=== PATIENT | female | born 1945 | race Caucasian/White ===

== ENCOUNTER 2017-02-15 11:41 | Day surgery (SDC) | payer MEDICARE ==
[~2017-02-15] VITALS: Ht 162.6 cm; Wt 74.5 kg
[2017-02-15] VITALS (7 sets, daily range): BP systolic 124–203; BP diastolic 56–79; PULSE 54–73; RESP 16–21; TEMP 97–97.6; O2SAT 97–99; Ht 162.6 cm; Wt 74.5 kg
[~2017-02-15 11:41] MED LIST: ALBU8.5H INH; ASPI-557 PO; ATEN50TA PO; CALC1TAB PO; CEFAZOLIN 1 GRAM INJECTION IV ONE; FURO40TA5 PO; LIDOCAINE 1% (10mg/ml) 2ml SDV INJ ONE; LISI-621 PO; LR 1,000 ML IV SCH; METF10002 PO; MULT-1147 PO; MULT-933 PO; NAPR220T61 PO; OMEG1CAP79 PO; PRED20TA PO
--- OUTSIDE RECORDS SUMMARY | 2017-02-15 12:02 | XMS REPORT ---
Author Author [facility]. Organization [facility] Address [address] [facility] [address] [place] [address] Phone [phone] Summary purpose CCDA Sent to [facility] Chief Complaint and Reason for Visit No authorized Reason for Visit (Admitting Diagnosis) is available for this visit. Problem list No authorized problems tracked for continuity of care are available for this visit. Encounters No authorized problems tracked for encounter diagnoses are available for this visit. Medications No medications recorded for this patient visit Allergies, adverse reactions, alerts No allergy information is available for this patient. Immunizations No immunizations recorded for this patient visit Relevant diagnostic tests and/or laboratory data RESULTS CBC :40:00 Result Normal Range Units WBC H 11.06 4.8-10.8 x103/mm3 Neutrophil % H 70.6 50-70 % Lymph % L 16.8 20-50 % [place] % H 11.6 1.0-9.0 % Eosinophil % 0.7 0-4 % Basophil % 0.3 0-2 % Neutrophil # H 7.81 3.0-7.0 x103/mm3 Lymph # 1.86 1.0-4.0 x103/mm3 [place] # H 1.28 0.0-0.8 x103/mm3 Eosinophil # 0.08 0-0.5 x103/mm3 Basophil # 0.03 0-0.2 x103/mm3 RBC L 3.75 4.20-5.40 x103/mm3 HGB L 11.6 12.0-16.0 g/dl HCT L 34.9 37.0-47.0 % MCV 93.1 81-99 FL MCH 30.9 27.0-31.0 pg MCHC 33.2 32.0-36.0 g/dl RDW L 11.9 12-15 % Platelet H 472 150-400 x103/mm3 MPV 9.8 6.0-10.0 FL Chemistry Group :40:00 Result Normal Range Units Sodium 136 134-145 mmol/L Potassium 3.6 3.6-5.0 mmol/L Chloride L 89 98-107 mmol/L CO2 H 36 22-30 mmol/L Glucose H 137 75-110 mg/dl BUN 13 9-20 mg/dl Creatinine L .62 0.8-1.7 mg/dl eGFR 95 ml/min. Calcium 9.0 8.4-10.2 mg/dl Special Chemistry Group [id number] Result Normal Range Units Troponin I < 0.06 ng/ml NEGATIVE - 0.06-0.30 ng/ml INCONCLUSIVE - 0.31-0.64 ng/ml; Suggest Repeating in 2-4 hours POSITIVE - >0.64 ng/ml; Probable AMI History of procedures Procedure Code Code Type Description Date Performed Performing Physician 92242 CPT-4 METABOLIC PANEL TOTAL CA 12-19-2016 KINZA IBARRA 30806 CPT-4 COMPLETE CBC, AUTOMATED 12-19-2016 KINZA IBARRA 34573 CPT-4 ASSAY OF TROPONIN, QUANT 12-19-2016 KINZA IBARRA Functional status No functional or cognitive status observations are available for this visit. Vital signs No authorized vital signs are available for this visit. Social history No Social History or smoking status observations were recorded for this visit. ( Unknown if ever smoked.) Treatment Plan No treatment plan text is available for this visit. Hospital discharge instructions No discharge instruction text is available for this visit.
--- OUTSIDE RECORDS SUMMARY | 2017-02-15 12:02 | XMS REPORT ---
Author Author [facility]. Organization [facility] Address [address] [facility] [address] [place] [address] Phone [phone] Summary purpose CCDA Sent to [facility] Chief Complaint and Reason for Visit No [...] Relevant diagnostic tests and/or laboratory data RESULTS Chemistry Group [id number] Result Normal Range Units Sodium 139 134-145 mmol/L Potassium 4.4 3.6-5.0 mmol/L Chloride L 93 98-107 mmol/L CO2 H 34 22-30 mmol/L Glucose H 129 75-110 mg/dl BUN 16 9-20 mg/dl Creatinine L .63 0.8-1.7 mg/dl eGFR 93 ml/min. Calcium 9.2 8.4-10.2 mg/dl History of procedures Procedure Code Code Type Description Date Performed Performing Physician 37052 CPT-4 METABOLIC PANEL TOTAL CA 08-23-2016 ELVA ALLEN Functional status No functional or cognitive status [...]
--- OUTSIDE RECORDS SUMMARY | 2017-02-15 12:02 | XMS REPORT ---
Author Author [facility]. Organization [facility] Address [address] [facility] [address] [place] [address] Phone [phone] Summary purpose CCDA Sent to [facility] Chief Complaint and Reason for Visit No authorized Reason for Visit (Admitting Diagnosis) is available for this visit. Problem list No authorized problems tracked for continuity of care are available for this visit. Encounters No authorized problems tracked for encounter diagnoses are available for this visit. Medications No home medications recorded for this patient visit Allergies, adverse reactions, alerts No allergy information is available for this patient. Immunizations No immunizations recorded for this patient visit Relevant diagnostic tests and/or laboratory data RESULTS Chemistry Group [id number]:00 Result Normal Range Units Sodium 135 134-145 mmol/L Potassium 3.6 3.6-5.0 mmol/L Chloride L 87 98-107 mmol/L CO2 H 35 22-30 mmol/L Glucose H 154 75-110 mg/dl BUN 13 9-20 mg/dl Creatinine L .5 0.8-1.7 mg/dl Calcium 10.2 8.4-10.2 mg/dl History of procedures No procedures recorded for this patient visit. Functional status No functional or cognitive status [...]
--- OUTSIDE RECORDS SUMMARY | 2017-02-15 12:02 | XMS REPORT ---
Author Author [facility]. Organization [facility] Address [address] [facility] [address] [place] [address] Phone [phone] Summary purpose CCDA Sent to [facility] Chief Complaint and Reason for Visit Admit Diagnosis 1 HYPERTENSION NOS Problem list No authorized problems tracked for [...] tests and/or laboratory data RESULTS Chemistry Group [id number]:00 Result Normal Range Units Sodium 135 134-145 mmol/L Potassium 3.6 3.6-5.0 mmol/L Chloride L 87 98-107 mmol/L CO2 H 35 22-30 mmol/L Glucose H 154 75-110 mg/dl BUN 13 9-20 mg/dl Creatinine L .5 0.8-1.7 mg/dl Calcium 10.2 8.4-10.2 mg/dl History of procedures Procedure Code Code Type Description Date Performed Performing Physician 87167 CPT-4 METABOLIC PANEL TOTAL CA 12-16-2014 ELVA ALLEN Functional status No functional or [...]
--- OUTSIDE RECORDS SUMMARY | 2017-02-15 12:02 | XMS REPORT ---
Author Author [facility]. Organization [facility] Address [address] [facility] [address] [place] [address] Phone [phone] Summary purpose CCDA Sent to [facility] Chief Complaint and Reason for Visit [...] diagnostic tests and/or laboratory data RESULTS CBC [id number]:50:00 Result Normal Range Units WBC H 12.34 4.8-10.8 x103/mm3 Neutrophil % H 71.1 50-70 % Lymph % L 14.5 20-50 % [place] % H 12.2 1.0-9.0 % Eosinophil % 1.8 0-4 % Basophil % 0.4 0-2 % Neutrophil # H 8.77 3.0-7.0 x103/mm3 Lymph # 1.79 1.0-4.0 x103/mm3 [place] # H 1.51 0.0-0.8 x103/mm3 Eosinophil # 0.22 0-0.5 x103/mm3 Basophil # 0.05 0-0.2 x103/mm3 RBC L 3.77 4.20-5.40 x103/mm3 HGB L 11.4 12.0-16.0 g/dl HCT L 34.2 37.0-47.0 % MCV 90.7 81-99 FL MCH 30.2 27.0-31.0 pg MCHC 33.3 32.0-36.0 g/dl RDW 12.9 12-15 % Platelet H 427 150-400 x103/mm3 MPV H 10.2 6.0-10.0 FL Chemistry Group [id number]:00 Result Normal Range Units Sodium L 132 134-145 mmol/L Potassium H 5.2 3.6-5.0 mmol/L Chloride L 87 98-107 mmol/L CO2 28 22-30 mmol/L Glucose H 145 75-110 mg/dl BUN 19 9-20 mg/dl Creatinine L .76 0.8-1.7 mg/dl eGFR 75 ml/min. Calcium 9.9 8.4-10.2 mg/dl Hematology Group [id number] Result Normal Range Units Sed Rate (ESR) H 74 0-20 MM/hr. History of procedures No procedures recorded for [...]
--- OUTSIDE RECORDS SUMMARY | 2017-02-15 12:02 | XMS REPORT ---
Author Author [facility]. Organization [facility] Address [address] [facility] [address] [place] [address] Phone [phone] Summary purpose CCDA Sent to [facility] Chief Complaint and Reason for Visit [...] diagnostic tests and/or laboratory data RESULTS CBC [id number]:55:00 Result Normal Range Units WBC H 13.54 4.8-10.8 x103/mm3 Neutrophil % H 75.4 50-70 % Lymph % L 14.8 20-50 % [place] % 8.3 1.0-9.0 % Eosinophil % 1.0 0-4 % Basophil % 0.5 0-2 % Neutrophil # H 10.19 3.0-7.0 x103/mm3 Lymph # 2.01 1.0-4.0 x103/mm3 [place] # H 1.13 0.0-0.8 x103/mm3 Eosinophil # 0.14 0-0.5 x103/mm3 Basophil # 0.07 0-0.2 x103/mm3 RBC L 4.05 4.20-5.40 x103/mm3 HGB 12.3 12.0-16.0 g/dl HCT L 36.6 37.0-47.0 % MCV 90.4 81-99 FL MCH 30.4 27.0-31.0 pg MCHC 33.6 32.0-36.0 g/dl RDW 12.7 12-15 % Platelet H 429 150-400 x103/mm3 MPV 10.0 6.0-10.0 FL Chemistry Group [id number] Result Normal Range Units Sodium L 132 134-145 mmol/L Result Amended on 2017-01-15 at 12:43:42. Previous status was DE. Potassium H 5.1 3.6-5.0 mmol/L Result Amended on 2017-01-15 at 12:43:42. Previous status was DE. Chloride L 89 98-107 mmol/L Result Amended on 2017-01-15 at 12:43:42. Previous status was DE. CO2 27 22-30 mmol/L Result Amended on 2017-01-15 at 12:43:42. Previous status was DE. Glucose H 149 75-110 mg/dl Result Amended on 2017-01-15 at 12:43:42. Previous status was DE. BUN H 22 9-20 mg/dl Result Amended on 2017-01-15 at 12:43:42. Previous status was DE. Creatinine L .72 0.8-1.7 mg/dl Result Amended on 2017-01-15 at 12:43:42. Previous status was DE. eGFR 80 ml/min. Total Protein 7.1 6.3-8.2 g/dl Result Amended on 2017-01-15 at 12:43:42. Previous status was DE. Albumin 3.7 3.5-5.0 g/dl Result Amended on 2017-01-15 at 12:43:42. Previous status was DE. Calcium H 10.3 8.4-10.2 mg/dl Result Amended on 2017-01-15 at 12:43:42. Previous status was DE. Alk Phos 105 38-126 U/L Result Amended on 2017-01-15 at 12:43:42. Previous status was DE. AST 16 14-36 U/L Result Amended on 2017-01-15 at 12:43:42. Previous status was DE. ALT 17 11-66 U/L Result Amended on 2017-01-15 at 12:43:42. Previous status was DE. T Bili .9 0.2-1.3 mg/dl Result Amended on 2017-01-15 at 12:43:42. Previous status was DE. A/G Ratio 1.1 Ratio Result Amended on 2017-01-15 at 12:43:42. Previous status was DE. History of procedures Procedure Code Code Type Description Date Performed Performing Physician 59245 CPT-4 COMPLETE CBC, AUTOMATED 01-14-2017 ROMIE ALLEN 19071 CPT-4 COMPREHEN METABOLIC PANEL 01-14-2017 ROMIE SOW Functional status No functional or cognitive status [...]
--- OUTSIDE RECORDS SUMMARY | 2017-02-15 12:03 | XMS REPORT | Continuity of Care Document ---
Author Author [facility] Organization [facility] Address Unknown Phone Unavailable Allergies Active Description Code Type Severity Reaction Onset Reported/Identified Relationship to Patient Clinical Status Yes codeine codeine Drug Allergy Unknown UNKNOWN 02/07/2012 Yes codeine codeine Drug Allergy Unknown vomiting 08/13/2016 Medications Problems Date Dx Coded Attending Type Code Diagnosis Diagnosed By 08/18/2010 D 401.1 BENIGN HYPERTENSION 08/24/2011 D 250.00 DM2/NOS UNCOMP NSU 08/24/2011 D 401.1 BENIGN HYPERTENSION 02/06/2013 ELVA DAVIS MD 401.1 BENIGN HYPERTENSION 05/22/2013 ELVA DAVIS MD 401.1 BENIGN HYPERTENSION 12/08/2013 ELVA DAVIS MD 250.00 DM2/NOS UNCOMP NSU 12/08/2013 ELVA DAVIS MD 272.0 PURE HYPERCHOLESTEROLEM 12/29/2013 ELVA DAVIS MD 276.1 HYPOSMOLALITY 08/23/2016 MIRIAM ALLEN MD, ELVA Díaz E11.9 Type 2 diabetes mellitus without complications 08/23/2016 MIRIAM ALLEN MD, ELVA Díaz I10 Essential (primary) hypertension 12/19/2016 KINZA MIKE R07.9 Chest pain, unspecified Procedures Code Description [place] [address] METABOLIC PANEL TOTAL CA MIRIAM ALLEN MD, ELVA [place] 08/18/2010 48085 METABOLIC PANEL TOTAL CA MIRIAM ALLEN MD, ELVA [place] 08/24/2011 77870 METABOLIC PANEL TOTAL CA MIRIAM ALLEN MD, ELVA [place] 02/06/2013 81106 COMPLETE CBC, AUTOMATED MIRIAM ALLEN MD, ELVA [place] 02/06/2013 82886 METABOLIC PANEL TOTAL CA MIRIAM ALLEN MD, ELVA [place] 05/22/2013 73868 METABOLIC PANEL TOTAL CA MIRIAM ALLEN MD, ELVA [place] 12/08/2013 83462 METABOLIC PANEL TOTAL CA MIRIAM ALLEN MD, ELVA R 12/29/2013 99859 METABOLIC PANEL TOTAL CA MIRIAM ALLEN MD, ELVA R 08/23/2016 45304 METABOLIC PANEL TOTAL CA KINZA MIKE 12/19/2016 08060 ASSAY OF TROPONIN, QUANT FRED ARABELLAKINZA 12/19/2016 77668 COMPLETE CBC, AUTOMATED KINZA MIKE 12/19/2016 Results Test Result Range CBC - 02/06/13 11:35 Granulocyte # 5.9 x10^3 3.0-7.0 Granulocyte % 68.2 % 50-70 HCT 41.2 % 37.0-47.0 HGB 13.2 G/DL 12.0-16.0 Lymph # 2.1 x10^3 1.0-4.0 Lymph % 24.9 % 20-50 MCH 30.2 PG 27.0-31.0 MCHC 32.1 G/DL 32.0-36.0 MCV 94 FL 81-99 [place] # 0.5 x10^3 0.0-0.8 [place] % 6.9 % 1.0-9.0 MPV 6.9 FL 6.0-10.0 Platelet 346 x10^3 150-400 RBC 4.38 x10^3 4.20-5.40 RDW 14.1 % 10.0-13.0 WBC 8.5 x10^3 4.8-10.8 Basic Metabolic Panel - 02/06/13 11:35 Sodium 132 MMOLL 134-145 Potassium 4.6 MMOLL 3.6-5.0 Chloride 90 MMOLL 98-107 CO2 32 MMOLL 22-30 Glucose 123 MG/DL 75-110 BUN 12 MG/DL 9-20 Creatinine .5 MG/DL 0.8-1.7 Calcium 9.7 MG/DL 8.4-10.2 Basic Metabolic Panel - 05/22/13 10:40 Sodium 135 MMOLL 134-145 Potassium 4.7 MMOLL 3.6-5.0 Chloride 92 MMOLL 98-107 CO2 31 MMOLL 22-30 Glucose 119 MG/DL 75-110 BUN 13 MG/DL 9-20 Creatinine .5 MG/DL 0.8-1.7 Calcium 9.4 MG/DL 8.4-10.2 Basic Metabolic Panel - 12/08/13 09:45 Sodium 122 MMOLL 134-145 Potassium 4.0 MMOLL 3.6-5.0 Chloride 75 MMOLL 98-107 CO2 37 MMOLL 22-30 Glucose 147 MG/DL 75-110 BUN 15 MG/DL 9-20 Creatinine .5 MG/DL 0.8-1.7 Calcium 9.9 MG/DL 8.4-10.2 Basic Metabolic Panel - 12/29/13 08:51 Sodium 137 MMOLL 134-145 Potassium 4.1 MMOLL 3.6-5.0 Chloride 90 MMOLL 98-107 CO2 40 MMOLL 22-30 Glucose 165 MG/DL 75-110 BUN 9 MG/DL 9-20 Creatinine .5 MG/DL 0.8-1.7 Calcium 9.7 MG/DL 8.4-10.2 Basic Metabolic Panel - 12/16/14 14:27 Sodium 135 MMOLL 134-145 Potassium 3.6 MMOLL 3.6-5.0 Chloride 87 MMOLL 98-107 CO2 35 MMOLL 22-30 Glucose 154 MG/DL 75-110 BUN 13 MG/DL 9-20 Creatinine .5 MG/DL 0.8-1.7 Calcium 10.2 MG/DL 8.4-10.2 GLUCOSE (POC) - 08/30/15 12:40 GLUCOSE (POC) 125 mg/dL 70-99 HEMOGLOBIN - 08/30/15 12:41 MEAN CELL VOLUME 95.7 fl 80.0-100.0 HEMOGLOBIN 13.2 gm/dL 12.0-16.0 METABOLIC PANEL, BASIC - 08/30/15 12:41 POTASSIUM 3.8 mmol/L 3.5-5.3 EST GFR (MDRD) > 60 mL/min > 59 ANION GAP 10 mmol/L 5-15 EST CrCl (CG) > 60 mL/min > 59 GLUCOSE 134 mg/dL 70-99 CALCIUM 8.7 mg/dL 8.5-10.1 BLOOD UREA NITROGEN 13 mg/dL 7-20 CREATININE 0.6 mg/dL 0.6-1.0 SODIUM 137 mmol/L 135-148 CHLORIDE 97 mmol/L 98-110 CARBON DIOXIDE 30 mmol/L 21-32 GLUCOSE (POC) - 08/13/16 13:51 GLUCOSE (POC) 111 mg/dL 70-99 HEMOGLOBIN - 08/13/16 13:52 MEAN CELL VOLUME 93.8 fl 80.0-100.0 HEMOGLOBIN 13.8 gm/dL 12.0-16.0 METABOLIC PANEL, BASIC - 08/13/16 13:52 POTASSIUM 3.4 mmol/L 3.5-5.3 EST GFR (MDRD) > 60 mL/min > 59 ANION GAP 10 mmol/L 5-15 EST CrCl (CG) > 60 mL/min > 59 GLUCOSE 122 mg/dL 70-99 CALCIUM 9.5 mg/dL 8.5-10.1 BLOOD UREA NITROGEN 13 mg/dL 7-20 CREATININE 0.8 mg/dL 0.6-1.0 SODIUM 136 mmol/L 135-148 CHLORIDE 93 mmol/L 98-110 CARBON DIOXIDE 33 mmol/L - Basic Metabolic Panel - 08/23/16 14:19 Sodium 139 MMOLL 134-145 Potassium 4.4 MMOLL 3.6-5.0 Chloride 93 MMOLL 98-107 CO2 34 MMOLL 22-30 Glucose 129 MG/DL 75-110 BUN 16 MG/DL 9-20 Creatinine .63 MG/DL 0.8-1.7 Calcium 9.2 MG/DL 8.4-10.2 EGFR 93 MLMIN HEMOGLOBIN - 10/08/16 11:54 MEAN CELL VOLUME 95.1 fl 80.0-100.0 HEMOGLOBIN 12.6 gm/dL 12.0-16.0 METABOLIC PANEL, BASIC - 10/08/16 11:54 POTASSIUM 3.9 mmol/L 3.5-5.3 EST GFR (MDRD) > 60 mL/min > 59 ANION GAP 10 mmol/L 5-15 GLUCOSE 144 mg/dL 70-99 CALCIUM 9.2 mg/dL 8.5-10.1 BLOOD UREA NITROGEN 12 mg/dL 7-20 CREATININE 0.8 mg/dL 0.6-1.0 SODIUM 139 mmol/L 135-148 CHLORIDE 99 mmol/L 98-110 CARBON DIOXIDE 30 mmol/L - GLUCOSE (POC) - 10/08/16 11:57 GLUCOSE (POC) 129 mg/dL 70-99 GLUCOSE (POC) - 10/08/16 13:51 GLUCOSE (POC) 141 mg/dL 70-99 Basic Metabolic Panel - 12/19/16 15:19 Sodium 136 MMOLL 134-145 Potassium 3.6 MMOLL 3.6-5.0 Chloride 89 MMOLL 98-107 CO2 36 MMOLL 22-30 Glucose 137 MG/DL 75-110 BUN 13 MG/DL 9-20 Creatinine .62 MG/DL 0.8-1.7 Calcium 9.0 MG/DL 8.4-10.2 EGFR 95 MLMIN CBC - 12/19/16 15:19 Eos # 0.08 x10^3 0-0.5 Eos % 0.7 % 0-4 HCT 34.9 % 37.0-47.0 HGB 11.6 G/DL 12.0-16.0 Lymph # 1.86 x10^3 1.0-4.0 Lymph % 16.8 % 20-50 MCH 30.9 PG 27.0-31.0 MCHC 33.2 G/DL 32.0-36.0 MCV 93.1 FL 81-99 [place]cock # 1.28 x10^3 0.0-0.8 [place] % 11.6 % 1.0-9.0 MPV 9.8 FL 6.0-10.0 Platelet 472 x10^3 150-400 RBC 3.75 x10^3 4.20-5.40 RDW 11.9 % 12-15 WBC 11.06 x10^3 4.8-10.8 Baso # 0.03 x10^3 0-0.2 Baso % 0.3 % 0-2 Neut % 70.6 % 50-70 Neut # 7.81 x10^3 3.0-7.0 Troponin I - 12/19/16 15:28 Troponin I < 0.06 NG/ML Basic Metabolic Panel - 12/27/16 14:38 Sodium 134 MMOLL 134-145 Potassium 5.4 MMOLL 3.6-5.0 Chloride 87 MMOLL 98-107 CO2 34 MMOLL 22-30 Glucose 124 MG/DL 75-110 BUN 13 MG/DL 9-20 Creatinine .49 MG/DL 0.8-1.7 Calcium 8.9 MG/DL 8.4-10.2 EGFR 124 MLMIN CBC - 12/27/16 14:50 Eos # 0.23 x10^3 0-0.5 Eos % 2.0 % 0-4 HCT 37.3 % 37.0-47.0 HGB 12.5 G/DL 12.0-16.0 Lymph # 1.51 x10^3 1.0-4.0 Lymph % 13.4 % 20-50 MCH 30.9 PG 27.0-31.0 MCHC 33.5 G/DL 32.0-36.0 MCV 92.3 FL 81-99 [place]cock # 1.15 x10^3 0.0-0.8 [place] % 10.2 % 1.0-9.0 MPV 9.6 FL 6.0-10.0 Platelet 617 x10^3 150-400 RBC 4.04 x10^3 4.20-5.40 RDW 11.8 % 12-15 WBC 11.26 x10^3 4.8-10.8 Baso # 0.07 x10^3 0-0.2 Baso % 0.6 % 0-2 Neut % 73.8 % 50-70 Neut # 8.30 x10^3 3.0-7.0 Sed Rate (ESR) - 12/27/16 14:50 Sed Rate (ESR) 79 MM/hr 0-20 CBC - 01/14/17 13:03 Eos # 0.14 x10^3 0-0.5 Eos % 1.0 % 0-4 HCT 36.6 % 37.0-47.0 HGB 12.3 G/DL 12.0-16.0 Lymph # 2.01 x10^3 1.0-4.0 Lymph % 14.8 % 20-50 MCH 30.4 PG 27.0-31.0 MCHC 33.6 G/DL 32.0-36.0 MCV 90.4 FL 81-99 [place]cock # 1.13 x10^3 0.0-0.8 [place] % 8.3 % 1.0-9.0 MPV 10.0 FL 6.0-10.0 Platelet 429 x10^3 150-400 RBC 4.05 x10^3 4.20-5.40 RDW 12.7 % 12-15 WBC 13.54 x10^3 4.8-10.8 Baso # 0.07 x10^3 0-0.2 Baso % 0.5 % 0-2 Neut % 75.4 % 50-70 Neut # 10.19 x10^3 3.0-7.0 Comprehensive Metabolic Panel - 01/15/17 12:41 Sodium 132 MMOLL 134-145 Potassium 5.1 MMOLL 3.6-5.0 Chloride 89 MMOLL 98-107 CO2 27 MMOLL 22-30 Glucose 149 MG/DL 75-110 BUN 22 MG/DL 9-20 Creatinine .72 MG/DL 0.8-1.7 Calcium 10.3 MG/DL 8.4-10.2 T Bili .9 MG/DL 0.2-1.3 T. Protein 7.1 G/DL 6.3-8.2 A/G Ratio 1.1 RATIO Albumin 3.7 G/DL 3.5-5.0 Alk Phos 105 U/L 38-126 ALT 17 U/L 11-66 AST 16 U/L 14-36 EGFR 80 MLMIN Basic Metabolic Panel - 01/17/17 12:47 Sodium 132 MMOLL 134-145 Potassium 5.2 MMOLL 3.6-5.0 Chloride 87 MMOLL 98-107 CO2 28 MMOLL 22-30 Glucose 145 MG/DL 75-110 BUN 19 MG/DL 9-20 Creatinine .76 MG/DL 0.8-1.7 Calcium 9.9 MG/DL 8.4-10.2 EGFR 75 MLMIN CBC - 01/17/17 13:01 Eos # 0.22 x10^3 0-0.5 Eos % 1.8 % 0-4 HCT 34.2 % 37.0-47.0 HGB 11.4 G/DL 12.0-16.0 Lymph # 1.79 x10^3 1.0-4.0 Lymph % 14.5 % 20-50 MCH 30.2 PG 27.0-31.0 MCHC 33.3 G/DL 32.0-36.0 MCV 90.7 FL 81-99 Hitchcock # 1.51 x10^3 0.0-0.8 [place]cock % 12.2 % 1.0-9.0 MPV 10.2 FL 6.0-10.0 Platelet 427 x10^3 150-400 RBC 3.77 x10^3 4.20-5.40 RDW 12.9 % 12-15 WBC 12.34 x10^3 4.8-10.8 Baso # 0.05 x10^3 0-0.2 Baso % 0.4 % 0-2 Neut % 71.1 % 50-70 Neut # 8.77 x10^3 3.0-7.0 Sed Rate (ESR) - 01/17/17 13:05 Sed Rate (ESR) 74 MM/hr 0-20 Encounters ACCT No. Visit Date/Time Discharge Status Pt. Type Provider Facility Loc./Unit Complaint [id number] 10/08/2016 11:14:00 2015 15:14:00 DIS Outpatient Joaquin MCCLENDON, [facility] WSUSHILA [id number] 08/13/2016 11:53:00 2015 17:40:00 DIS Outpatient Joaquin MCCLENDON, [facility] NIKIA [id number] 08/30/2015 12:04:00 2014 16:27:00 DIS Outpatient Joaquin MCCLENDON, [facility] NIKIA
--- OUTSIDE RECORDS SUMMARY | 2017-02-15 12:03 | XMS REPORT ---
Author Author [facility]. Organization [facility] Address [address] [facility] [address] [place] [address] Phone [phone] Summary purpose CCDA Sent to [facility] Chief Complaint and Reason for Visit No [...] diagnostic tests and/or laboratory data RESULTS CBC :00:00 Result Normal Range Units WBC H 11.26 4.8-10.8 x103/mm3 Neutrophil % H 73.8 50-70 % Lymph % L 13.4 20-50 % Lucas % H 10.2 1.0-9.0 % Eosinophil % 2.0 0-4 % Basophil % 0.6 0-2 % Neutrophil # H 8.30 3.0-7.0 x103/mm3 Lymph # 1.51 1.0-4.0 x103/mm3 Lucas # H 1.15 0.0-0.8 x103/mm3 Eosinophil # 0.23 0-0.5 x103/mm3 Basophil # 0.07 0-0.2 x103/mm3 RBC L 4.04 4.20-5.40 x103/mm3 HGB 12.5 12.0-16.0 g/dl HCT 37.3 37.0-47.0 % MCV 92.3 81-99 FL MCH 30.9 27.0-31.0 pg MCHC 33.5 32.0-36.0 g/dl RDW L 11.8 12-15 % Platelet H 617 150-400 x103/mm3 MPV 9.6 6.0-10.0 FL Chemistry Group [id number]:00:00 Result Normal Range Units Sodium 134 134-145 mmol/L SPECIMEN IS GROSSLY HEMOLYZED. HEMOLYSIS MAY AFFECT TEST RESULTS. 12/27/16LL Potassium H 5.4 3.6-5.0 mmol/L SPECIMEN IS GROSSLY HEMOLYZED. HEMOLYSIS MAY AFFECT TEST RESULTS. 12/27/16LL Chloride L 87 98-107 mmol/L SPECIMEN IS GROSSLY HEMOLYZED. HEMOLYSIS MAY AFFECT TEST RESULTS. 12/27/16LL CO2 H 34 22-30 mmol/L SPECIMEN IS GROSSLY HEMOLYZED. HEMOLYSIS MAY AFFECT TEST RESULTS. 12/27/16 Glucose H 124 75-110 mg/dl SPECIMEN IS GROSSLY HEMOLYZED. HEMOLYSIS MAY AFFECT TEST RESULTS. 12/27/16LL BUN 13 9-20 mg/dl SPECIMEN IS GROSSLY HEMOLYZED. HEMOLYSIS MAY AFFECT TEST RESULTS. 12/27/16 Creatinine L .49 0.8-1.7 mg/dl SPECIMEN IS GROSSLY HEMOLYZED. HEMOLYSIS MAY AFFECT TEST RESULTS. 12/27/16LLH eGFR 124 ml/min. SPECIMEN IS GROSSLY HEMOLYZED. HEMOLYSIS MAY AFFECT TEST RESULTS. 12/27/16 Calcium 8.9 8.4-10.2 mg/dl SPECIMEN IS GROSSLY HEMOLYZED. HEMOLYSIS MAY AFFECT TEST RESULTS. 12/27/16[facility] [id number] Result Normal Range Units Sed Rate (ESR) H 79 0-20 MM/hr. History of procedures No procedures [...]
[2017-02-15 12:30] LABS: ANION GAP 16 MEQ/L (5-15); BUN/CREATININE RATIO 28 RATIO (6-26); CALCIUM 9.7 MG/DL (8.4-10.2); CHLORIDE 91 MEQ/L (98-107); CO2 - CARBON DIOXIDE 32 MEQ/L (22-30); CREATININE 0.8 MG/DL (0.7-1.2); GLOMERULAR FILTRATION RATE 71; GLUCOSE 156 MG/DL (65-110); POTASSIUM 3.6 MEQ/L (3.6-5); SODIUM 139 MEQ/L (134-144)
--- NOTE | 2017-02-15 13:46 | ANESPREOP ---
Anesthesia Record Date and Time DATE: 02/15/17 TIME: 13:44 Pre-Op Diagnosis frequent headache Proposed Surgical Procedure JENNIE. TEMPORAL ARTERY BIOPSY NPO since: 0700 meds Allergies: Coded Allergies: codeine (Verified Adverse Reaction, Unknown, SEVERE NAUSEA, 02/15/17) Ht/Wt/BMI Height: 5 ' 4.00 " Weight: 74.500 kg BMI: 28.2 kg/m2 Vital Signs Date Time Temp Pulse Resp B/P Pulse Ox O2 Delivery O2 Flow Rate FiO2 02/15/17 12:11 97.6 54 17 203/79 98 Room Air Medications Inpatient Medications Current Medications Medications (Trade) Dose Ordered Sig/Hector Start Time Stop Time Status Last Admin Dose Admin Lactated Ringer's (Lactated Ringers) 1,000 ml @ 50 mls/hr Q20H 02/15/17 07:00 02/15/17 13:18 50 MLS/HR Albuterol Sulfate (Proair HFA 90 mcg/actuation) 8.5 Gm Hfa.aer.ad, 2 PUFF INH Q4H PRN for SHORTNESS OF AIR, (Reported) Last Taken: on 02/14/17 1800 Aspirin (Aspir 81) 81 Mg Tablet.dr, 1 TAB PO DAILY, (Reported) Last Taken: on 02/13/17 Atenolol (Atenolol) 50 Mg Tablet, 1 TAB PO DAILY, ( Reported) Last Taken: on 02/15/17 0800 Calcium Carbonate/Vitamin D3 (Caltrate 600 + D Tablet) 1 Each Tablet, 1 TAB PO DAILY, (Reported) Last Taken: on 02/13/17 Furosemide (Furosemide) 40 Mg Tablet, 1 TAB PO DAILY, (Reported) Last Taken: on 02/14/17 1500 Lisinopril (Lisinopril) 20 Mg Tablet, 3 TAB PO DAILY, (Reported) Last Taken: on 02/15/17 0800 Metformin HCl (Metformin HCl) 1,000 Mg Tablet, 1 TAB PO BIDWM, (Reported) Take one tablet, by mouth, twice daily with meals Last Taken: on 02/14/17 2000 Multivitamin (Multi-Day Vitamins) 1 Each Tablet , 1 TAB PO DAILY, (Reported) Last Taken: on 02/13/17 Multivits Min/Iron/FA/Herb#186 (Hair, Skin & Nails Caplet) 1 Each Tablet, 3 CAP PO DAILY, (Reported) Last Taken: on 02/13/17 Naproxen Sodium (Aleve) 220 Mg Tablet, 220 MG PO Q12HR PRN for PAIN, (Reported) Take 1 tablet, by mouth, daily with breakfast. Last Taken: on 02/11/17 [place]-3/Dha/Epa/Fish Oil (Fish Oil 1,000 mg Softgel ) 1 Each Capsule, 2 CAP PO DAILY, (Reported) Last Taken: on 02/13/17 Prednisone (Prednisone) 20 Mg Tablet, 20 MG PO WB, (Reported) Take 1 tablet, by mouth, daily with breakfast. Last Taken: on 02/14/17 1500 Currently on Beta Arnoldo: Yes Beta Arnoldo Last Taken: 02/15/17 0800 Medical/Surgical History Anesthesia PMH: Reports: *Diabetes (NIDD), *Hypertension, Anesthesia Reactions (NO AIRWAY ISSUES), Arthritis (STIFFNESS), Asthma, Deep Vein Thrombosis (HX OF PE ), Pneumonia (HX), Denies: Cancer, Clotting Problems, Glaucoma, Malignant Hyperthermia, Renal Disease, Sleep Apnea, Thyroid Disease Smoking Status: Never smoker Has pt. smoked today?: No Use Chewing Tobacco?: No Second Hand Exposure: No Substance Use Type: does not use Alcohol Intake: none HX of Last Menstrual Period: AROUND AGE 50 Past Surgical History Orthopedic Surgeries: Abdominal Surgeries: Genitourinary Surgeries: Cardiac Surgeries: Endocrine Surgeries: Reproductive Surgeries: Yes - TUBAL LIGATION Neurological Surgeries: Ear Surgeries: Nose Surgeries: Throat Surgeries: Other Surgeries: Yes - COLONSCOPY,CAT-JENNIE Anesthesia Adverse Reactions: FOUND none Pertinent Findings Laboratory Tests 02/15/17 12:15 EKG Rhythm: Sinus Rhythm Physical Exam Respiratory: Lungs clear Cardiovascular: FOUND Regular rate, rhythm, FOUND Systolic murmur Airway Assessment Mallampati Score: III TMD: 3 Fingerbreadths Neck Extension: Fair Teeth: Chipped Teeth/Crowns Overall Assessment: May Be Diff Intubation ASA: 3 Plan Anesthesia Plan: TIVA Discussion Discussed risks/options/alternatives of anesthesia and questions answered. Patient consents. Nursing pain assessment noted. Present: Spouse Attestation Statement Prior to the delivery of any anesthetic medication, I examined the patient, developed the plan, obtained the patient's consent and discussed the risk and benefits of the procedure with the patient/guardian. ROSSI LOZANO CRNA Feb 15, 2017 13:46
[2017-02-15] MEDS ORDERED: MIDAZOLAM 2mg/2ml INJECTION ONE (14:36)
[2017-02-15] MEDS ORDERED: FENTANYL 100mcg/2ml INJECTION ONE (14:36)
[2017-02-15] MEDS ORDERED: PROPOFOL 200mg 20 ML IV ONE (14:47)
[2017-02-15] MEDS ORDERED: EPHEDRINE SULFATE 50mg/ml INJECTION ONE (15:04)
[2017-02-15] MEDS ORDERED: SALINE FLUSH 10ml SYRINGE ONE (15:04)
[2017-02-15] MEDS ORDERED: BUPIVACAINE 0.25%/EPI 1:200,000 30ml SDV ONE (15:05)
--- NOTE | 2017-02-15 16:03 | ANESPO ---
Post-Op Note Date 02/15/17 Time: 16:03 Status Pt Participated in Evaluation: Pt participated in person Vital Signs Date Time Temp Pulse Resp B/P Pulse Ox O2 Delivery O2 Flow Rate FiO2 02/15/17 15:54 73 16 136/61 98 Room Air 02/15/17 15:39 97.0 Respiratory Function: Airway patent, Regular respirations Cardiovascular Function: Regular pulse Mental Status: Alert/oriented Pain Level Intensity: 0 Hydration: Taking po fluids Complications during Recovery None apparent Follow-Up Instructions Instructions Per Surgeon ROSSI LOZANO CRNA Feb 15, 2017 16:03
--- NOTE | 2017-02-20 08:23 | OPNOTEF ---
DATE OF SERVICE 02/15/2017 SURGEON Sanket Rocha MD PREOPERATIVE DIAGNOSIS Rule out temporal/giant-cell arteritis. POSTOPERATIVE DIAGNOSIS Rule out temporal/giant-cell arteritis. PROCEDURE Bilateral temporal artery biopsies. ANESTHESIA TIVA/local BRIEF HISTORY/INDICATIONS Mrs. Marques is a 71-year-old female who was recently sent to my office by her bisque placer for possible temporal artery biopsies. The patient had a history of having bilateral temporal headaches and tenderness noted upon palpation overlying the temporal regions. She was found have an elevated ESR and CRP. As a result of the above indications, it was recommended that she undergo bilateral temporal artery biopsies to rule in or rule out the process of temporal/giant cell arteritis. For completeness please refer to notes included in the patient's chart. DESCRIPTION OF PROCEDURE After informed consent was obtained, the patient was brought to the operative suite, placed on the table in supine fashion. Temporal region within the preauricular region was then prepped and draped in sterile fashion bilaterally. Formal time-out was then completed. Utilizing a hand-held Doppler, the anatomic location of the temporal artery was ascertained and marked out percutaneously. 0.25% Marcaine with epinephrine was injected overlying each ascertained location of the temporal artery, both within the left and right preauricular/temporal region. A 1 cm incision was made in both locations. In both locations, dissection was carried down through the underlying subcutaneous tissues and the underlying enveloping fascia was opened. In both circumstances, a segment of temporal artery was dissected out and excised and submitted for pathologic evaluation. Both femoral arteries were ligated proximally and distally with 3-0 Vicryl sutures and approximately a 1 cm segment was submitted in both circumstances. Each wound was hemostatic. Each wound was closed in a subcuticular fashion with 4-0 Monocryl. Dermabond was placed overlying each incision. The patient was awakened from her anesthetic and sent back to recovery room once deemed in stable condition. RAMONA
== END 2017-02-15 16:42 | disposition home or self-care (01) ==
LOC: SCU 11:41
PROVIDERS: ATTEND Surgery
DX: I67.2 Cerebral atherosclerosis (principal); R51 Headache
CPT/HCPCS: 36415; 37609; 80048; 88305; J0690; J2250; J2704; J3010; J7120